=== PATIENT | male | born 1950 | race African-American/Black ===

== ENCOUNTER 2017-05-15 16:04 | Observation (INO) ==
[2017-05-15 17:14] LABS: Basophils # 0.1 10*3/uL (0.0-0.2); Basophils % 1.1 % (0.0-0.8); Eosinophils # 0.3 10*3/uL (0.0-0.87); Eosinophils % 3.6 % (0.00-10.9); Hematocrit 38.9 VOL% (42.0-52.0); Hemoglobin 12.4 GM/DL (14.0-18.0); Immature Granulocytes % 1.1 %; Immature Granulocytes Absolute 0.08 #; Lymphocytes # 2.1 10*3/uL (1.4-4.0); Lymphocytes % 29.3 % (21.2-54.2); Mean Corpuscular HGB Conc 31.9 GM/DL (32-36); Mean Corpuscular Hemoglobin 29 PG (27-34); Mean Corpuscular Volume 89.8 FL (87-102); Monocytes % 14.4 % (1.7-12.7); Neutrophils # 3.5 10*3/uL (1.4-7.4); Neutrophils % 50.5 % (38.7-73.9); Platelet Count 189 T/CUMM (130-400); Red Blood Count 4.33 MC/CUMM (3.8-5.5); Red Cell Distribution Width 15.9 % (9.3-17.3)
--- NOTE | 2017-05-15 17:31 | XRay Report ---
History: Abdominal pain Date: 05/15/2017 Study: Flat and left lateral decubitus views abdomen Comparison exam: July 02, 2016 There is no evidence of pneumoperitoneum. The bowel gas pattern is nonobstructive without gross mass lesion. No radiopaque calculi are seen. There is mild lumbar spondylosis. Prosthetic heart valve is noted. Impression: No acute abdominal process PROCEDURE INTERPRETED AT [facility] DEPARTMENT OF RADIOLOGY Final Report Signed by: Dr. Lakshmi Herrera
--- NOTE | 2017-05-15 17:33 | XRay Report ---
History: Shortness of breath Date: 05/15/2017 Study: Chest x-ray AP portable Comparison exam: May 12, 2017 There is continued cardiomegaly. The patient is status post prior median sternotomy and mitral valve replacement. There is no mediastinal mass. The pulmonary vasculature is slightly prominent. There is moderate elevation of the right hemidiaphragm as before. There is trace pleural effusion on the right. There is mild atelectatic change in the medial right lung base. The left lung is generally clear. Osseous structures are unchanged. Impression: Cardiomegaly and evidence of mild CHF. Grossly similar to the exam performed 3 days ago PROCEDURE INTERPRETED AT [facility] DEPARTMENT OF RADIOLOGY Final Report Signed by: Dr. Lakshmi Herrera
[2017-05-15 17:40] LABS: Albumin 3.2 G/DL (3.4-5.0); Bilirubin,Total 0.7 MG/DL (0.2-1.0); Calcium 8.7 MG/DL (8.5-10.1); Total Protein 7.3 G/DL (6.4-8.3)
[2017-05-15 17:45] LABS: Troponin I Only 1.03 NG/ML (0.00-0.045)
[2017-05-15] MEDS ORDERED: MAGNESIUM SULF RIDER 4 GM in PREMIX 1 EACH IV PRN (19:11)
[2017-05-15] MEDS ORDERED: MAGNESIUM SULF RIDER 2 GM in PREMIX 1 EACH IV PRN (19:11)
--- NOTE | 2017-05-15 19:11 | Emergency Department Note ---
ITim Emily, am scribing for, and in the presence of, Maciej Schaffer M.D. 16 :42. Sarbjit Wen Howard T, M.D., personally performed the services described in this documentation, ascribed by Zo Dumont in my presence, and it is both accurate and complete [id number] . Arrival - Arrival Chief Complaint: Shortness of Breath ED Nursing Triage Note: Brought in by EMS c/o SOB-onset 2 days ago. Patient dialyzed earlier today. Mode of Arrival: Stretcher Limitations: No Limitations Source: Patient Time Seen by Provider: 05/15/17 16:19 - History of Present Illness HPI Narrative: Pt is a 66 y/o male who was brought to ED by EMS with c/o SOB and left side chest pain that started , day after heart cath was done by . Pt has associated sxs of nausea and pain when swallowing but denies vomiting or fevers. Pt reports heart cath procedure went good with no complications. Pt dialyzed earlier today. Onset (ago): day(s) Consistency: constant Severity: mild, moderate Severity scale (1-10): 4 Quality: aching, fullness Allergies/Adverse Reactions: Allergies Allergy/AdvReac Type Severity Reaction Status Date / Time No Known Allergies Allergy Verified 05/12/17 06:43 Home Medications: Home Medications Medication Instructions Recorded Confirmed Type Azelastine Nasal 137 Mcg/[place] 2 spray BOTH NARES BID nasal spray 07/01/1602/24 Rx [Astelin Nasal [place]] Ferrous Sulfate Tab [Feosol 325 mg PO DAILY tablet 07/01/16 05/15/17 Rx Original Tab] Amiodarone HCl 100 mg PO DAILY 07/20/16 05/15/17 History Allopurinol [Zyloprim] 100 mg PO BID 08/18/16 05/15/17 History LORazepam [Lorazepam] 0.5 mg PO PRN PRN 08/18/16 05/15/17 History Insulin Glargine [Lantus] 30 unit SUBCUT DAILY 05/10/17 05/15/17 History Lidocaine/Prilocaine Cream [Emla] 1 applic TOP ONCE PRN 05/12/17 05/15/17 History Omeprazole 40 mg PO DAILY 05/12/17 05/15/17 History Promethazine Tab [Phenergan Tab] 25 mg PO Q6H PRN 05/12/17 05/15/17 History hydrOXYzine HCl [Hydroxyzine HCl] 25 mg PO Q8HR PRN 05/12/17 05/15/17 History Carvedilol [Coreg] 25 mg PO BID #60 tablet 05/13/17 05/15/17 Rx Irbesartan [Avapro] 150 mg PO DAILY #30 tablet 05/13/17 05/15/17 Rx Rosuvastatin [Crestor] 20 mg PO BEDTIME #30 tablet 05/13/17 05/15/17 Rx Ticagrelor [Brilinta] 90 mg PO BID #60 tablet 05/13/17 05/15/17 Rx Aspirin EC Tab 81 mg PO DAILY 05/15/17 05/15/17 History Torsemide 10 mg PO DAILY 05/15/17 05/15/17 History hydrALAZINE TAB [Apresoline Tab] 50 mg PO DAILY 05/15/17 05/15/17 History Review of System - Review of System 12 point system: reviewed and no additional remarkable complaints except as stated - Review of System Constitutional: Absent: fever, weakness Head/Ears/Nose/Throat: Absent: sore throat (pain with swallowing) Respiratory: Present: respiratory distress Cardiovascular: Present: chest pain (left side) Gastrointestinal: Present: nausea. Absent: abdominal pain, vomiting, diarrhea Musculoskeletal: Absent: arm pain, back pain, leg pain, neck pain Skin: Absent: rash Neurological: Absent: headache Medical,Surgical,& Family Hx - Medical History Cardio: History of: Cardiac Dysrhythmia (A Fib), CHF (Since 2008), CAD, Hypertension (Since 2008), Cardiovascular Problems Psychological: History of: Anxiety Disorders (Since 2015), Depression ( Since 2015) Neurology: No history of: Seizures HEENT: History of: Eye Problem, Glaucoma Endocrine: History of: Diabetes Mellitus (IDDM) (Since 2008), Dyslipidemia ( Since 2008) Rheumatology: History of;: Gout (For the last 20 years), Rheumatoid Arthritis ( In left hand since last 10 years.) Respiratory: History of: Bronchitis (In 2016), Respiratory Problems Renal: History of: Dialysis (Since 2015), Renal Failure Gastrointestinal: History of: GERD (Since 2008) - Surgical History Cardiac Surgeries: Sugical HX of: Cardiac Catheterization, Cardiac Surgery ( CABG in 2015) Patient Denies: Femoral-Popliteal Bypass Graft, Carotid Endarterectomy, Internal Defibrillator, Vascular Access Devices Thoracic Surgeries: Patient denies;: Organ Transplant Neurologic Surgeries: Patient denies: Neurologic Surgery HEENT Surgeries: Surgical HX of: Eye Surgery (Lens replacement & Stent placed in left eye since 2015) Patient denies: Carotid Endarterectomy Abdominal Surgeries: Patient denies: Splenectomy Orthopedic Surgeries: Surgical HX of;: Total Knee Replacement (left knee, 2015) - Family History Family History: Reports;: Family Cancer (dad - lung), Family Diabetes (mother), Family Hypertension (mother) Denies;: Family Anesthesia Reaction, Family Psychiatric Problems, Family Stroke - Social History Smoking Status: Former smoker Marital Status: Single Functional capacity: independent ambulation Exam Vital Signs: Vital Signs Temperature 97.3 F L 05/15/17 16:14 Pulse Rate 70 05/15/17 16:14 Respiratory Rate 20 05/15/17 16:30 Blood Pressure 94/57 05/15/17 16:14 O2 Sat by Pulse Oximetry 95 05/15/17 16:14 - General General appearance: alert, in no apparent distress - Head Head exam: Present: atraumatic, normocephalic - Eye Eye exam: Present: PERRL, EOMI - ENT ENT exam: Present: mucous membranes moist. Absent: mucous membranes dry - Neck Neck exam: Present: full ROM. Absent: tenderness - Chest Chest inspection: Present: symmetric chest wall rise. Absent: tenderness - Respiratory Respiratory exam: Absent: normal lung sounds bilaterally (poor effort with coarse sounds), respiratory distress - Cardiovascular Cardiovascular exam: Present: regular rate, normal rhythm, normal heart sounds - Abdominal Exam Abdominal exam: Present: soft, distention (mild distention). Absent: tenderness - Extremities Exam Extremities exam: Present: full ROM, pedal edema (trace). Absent: tenderness - Neurological Exam Neurological exam: Present: alert, oriented X3, CN II-XII intact. Absent: motor sensory deficit - Psychiatric Psychiatric exam: Present: normal affect, normal mood - Skin Skin exam: Present: warm, dry Course Course Narrative: Medical decision making: Discussed with Dr. Ruiz brace end [employer] former on-call who did recommend overnight observation and cardiac enzymes repeated due to chest pain despite recent cath. Results - Labs CBC & BMP: 05/15/17 17:03 05/15/17 17:03 Lab Results: I have reviewed the patients labs Labs: Laboratory Tests 05/15/17 05/15/17 05/15/17 17:03 17:03 17:03 WBC 7.0 RBC 4.33 Hgb 12.4 L Hct 38.9 L MCHC 31.9 L Plt Count 189 D [place] % (Auto) 14.4 H Baso % (Auto) 1.1 H [place] # (Auto) 1.0 H Sodium 136 Potassium 4.0 Chloride 94 L Carbon Dioxide 36 H BUN 35 H Creatinine 5.50 H Glucose 133 H AST 38 H Alkaline Phosphatase 140 H Troponin I 1.030 H D B-Natriuretic Peptide 171 H Albumin 3.2 L Globulin 4.1 H Albumin/Globulin Ratio 0.7 L - Diagnostic Findings Procedure: Abdominal x-ray: report reviewed by me (No acute abdominal process.) , Chest x-ray: report reviewed by me (Cardiomegaly and evidence of mild CHF. Grossly similar to the exam performed 3 days ago.) Disposition Clinical Impression: Elevated troponin, CHF (congestive heart failure), ESRD (end stage renal disease) on dialysis, CAD (coronary artery disease) Case discussed with: patient Disposition: Still a Patient Condition: Stable Time of Disposition: 19:10
[2017-05-15] MEDS: ALUMINUM/MAGNES/SIMETH MAX STR 30 ML UDCUP PO PRN (23:33)
[2017-05-16 01:58] LABS: Basophils # 0.1 10*3/uL (0.0-0.2); Basophils % 1.1 % (0.0-0.8); Eosinophils # 0.3 10*3/uL (0.0-0.87); Hematocrit 35.5 VOL% (42.0-52.0); Hemoglobin 11.3 GM/DL (14.0-18.0); Immature Granulocytes % 0.8 %; Immature Granulocytes Absolute 0.05 #; Lymphocytes # 2.2 10*3/uL (1.4-4.0); Lymphocytes % 33.6 % (21.2-54.2); Mean Corpuscular HGB Conc 31.8 GM/DL (32-36); Mean Corpuscular Hemoglobin 29 PG (27-34); Mean Corpuscular Volume 89.6 FL (87-102); Mean Platelet Volume 11.9 FL (9.6-12.0); Monocytes % 15.4 % (1.7-12.7); Neutrophils # 2.9 10*3/uL (1.4-7.4); Neutrophils % 45.1 % (38.7-73.9); Platelet Count 171 T/CUMM (130-400); Red Blood Count 3.96 MC/CUMM (3.8-5.5); Red Cell Distribution Width 15.6 % (9.3-17.3); White Blood Count 6.5 T/CUMM (4-12)
[2017-05-16 02:00] LABS: Calcium 8.2 MG/DL (8.5-10.1); Osmolality,Calculated 289.7 MOS/KG (273-304); Potassium 3.4 MMOL/L (3.5-5.1); Troponin I Only 0.906 NG/ML (0.00-0.045)
--- NOTE | 2017-05-16 07:50 | Cardiology History & Physical ---
Assessment and Plan (1) ESRD (end stage renal disease) on dialysis Problem details: No acute indication for HD today. Status: Acute Current Visit: Yes (2) Elevated troponin Status: Acute Assessment and plan: Patient's troponin is elevated in a nonspecific pattern and we will repeat it this morning. Of note his CK total and CK-MB are negative for evidence of myocardial damage. Current Visit: Yes (3) CAD (coronary artery disease) Problem details: pt is schedule for CABG next week Status: Chronic Current Visit: Yes (4) Cardiomyopathy Status: Acute Assessment and plan: Continue current medications. Current Visit: No History of Present Illness Chief complaint: I am still having chest pain History of present illness: Mr. Strauss is a 66 year old male who has end-stage renal disease and dialyzes Wednesday. He dialyzed yesterday without problems. He was admitted several days ago for PCI of the right coronary stenosis which was done and was uncomplicated. Patient's troponins are elevated primarily related to his end-stage renal disease and he presented to the hospital last night complaining of chest discomfort. For that reason he was admitted for observation. He has had no further chest discomfort this morning. He complains of shortness of breath which is likely related to the patient's deconditioning as well as his history of cardiomyopathy. His ejection fraction was found to be in the 35-40% range. His troponins were nonspecifically elevated and we will repeat an another set today. If they are unchanged we can likely discharge this patient home. He describes the pain in his chest is related to swallowing. He clearly does not sound anginal. His EKG does not show any acute change and is essentially unchanged from EKG done post procedure. Home Medications Medication Instructions Recorded Confirmed Type Azelastine Nasal 137 Mcg/[place] 2 spray BOTH NARES BID nasal spray 07/01/1602/24 Rx [Astelin Nasal [place]] Ferrous Sulfate Tab [Feosol 325 mg PO DAILY tablet 07/01/16 05/15/17 Rx Original Tab] Amiodarone HCl 100 mg PO DAILY 07/20/16 05/15/17 History Allopurinol [Zyloprim] 100 mg PO BID 08/18/16 05/15/17 History LORazepam [Lorazepam] 0.5 mg PO PRN PRN 08/18/16 05/15/17 History Insulin Glargine [Lantus] 30 unit SUBCUT DAILY 05/10/17 05/15/17 History Lidocaine/Prilocaine Cream [Emla] 1 applic TOP ONCE PRN 05/12/17 05/15/17 History Omeprazole 40 mg PO DAILY 05/12/17 05/15/17 History Promethazine Tab [Phenergan Tab] 25 mg PO Q6H PRN 05/12/17 05/15/17 History hydrOXYzine HCl [Hydroxyzine HCl] 25 mg PO Q8HR PRN 05/12/17 05/15/17 History Carvedilol [Coreg] 25 mg PO BID #60 tablet 05/13/17 05/15/17 Rx Irbesartan [Avapro] 150 mg PO DAILY #30 tablet 05/13/17 05/15/17 Rx Rosuvastatin [Crestor] 20 mg PO BEDTIME #30 tablet 05/13/17 05/15/17 Rx Ticagrelor [Brilinta] 90 mg PO BID #60 tablet 05/13/17 05/15/17 Rx Aspirin EC Tab 81 mg PO DAILY 05/15/17 05/15/17 History Torsemide 10 mg PO DAILY 05/15/17 05/15/17 History hydrALAZINE TAB [Apresoline Tab] 50 mg PO DAILY 05/15/17 05/15/17 History Allergies Allergy/AdvReac Type Severity Reaction Status Date / Time No Known Allergies Allergy Verified 05/12/17 06:43 Medical,Surgical,& Family Hx - Medical History Cardio: History of: Cardiac Dysrhythmia (A Fib), CHF (Since 2008), CAD, Hypertension (Since 2008), Cardiovascular Problems Psychological: History of: Anxiety Disorders (Since 2015), Depression ( Since 2015) Neurology: No history of: Seizures HEENT: History of: Eye Problem, Glaucoma Endocrine: History of: Diabetes Mellitus (IDDM) (Since 2008), Dyslipidemia ( Since 2008) Rheumatology: History of;: Gout (For the last 20 years), Rheumatoid Arthritis ( In left hand since last 10 years.) Respiratory: History of: Bronchitis (In 2016), Respiratory Problems Renal: History of: Dialysis (Since 2015), Renal Failure Gastrointestinal: History of: GERD (Since 2008) - Surgical History Cardiac Surgeries: Sugical HX of: Cardiac Catheterization, Cardiac Surgery ( CABG in 2015) Patient Denies: Femoral-Popliteal Bypass Graft, Carotid Endarterectomy, Internal Defibrillator, Vascular Access Devices Thoracic Surgeries: Patient denies;: Organ Transplant Neurologic Surgeries: Patient denies: Neurologic Surgery HEENT Surgeries: Surgical HX of: Eye Surgery (Lens replacement & Stent placed in left eye since 2015) Patient denies: Carotid Endarterectomy Abdominal Surgeries: Patient denies: Splenectomy Orthopedic Surgeries: Surgical HX of;: Total Knee Replacement (left knee, 2015) - Family History Family History: Reports;: Family Cancer (dad - lung), Family Diabetes (mother), Family Hypertension (mother) Denies;: Family Anesthesia Reaction, Family Psychiatric Problems, Family Stroke - Social History Smoking Status: Former smoker Frequency of Alcohol Use: None Type of Drug Use: None Cardiology Physical Exam - Constitutional Vitals: Vital Signs Temp Pulse Resp BP Pulse Ox 97.1 F L 70 18 101/62 93 L 05/16/17 04:00 05/16/17 04:00 05/16/17 06:34 05/16/17 04:00 05/16/17 04:00 Intake and Output 05/15/17 05/15/17 05/16/17 15:59 23:59 07:59 Intake Total 120 / 120 0 / 0 Balance 120 / 120 0 / 0 Intake: Oral 120 / 120 0 / 0 Other: Voiding Method Dialysis Patient Dialysis Patient # Bowel Movements 0 0 Weight 112.672 kg 112.491 kg Patient Weight 05/16/17 23:59 Weight 112.491 kg Exam: General:no acute distress. alert and oriented, mood and affect are normal HEENT: no new lesions, sclerae are clear, mouth and pharynx benign Neck: supple, trachea midline, no JVD noted Lungs: no rales ronchi or wheeze is noted. pt comfortable without accesory muscle use to assist with breathing CV: RRR no murmur rub or gallop is noted. Abd: soft and nontender, BSNA, no masses. Ext: no cyanosis, clubbing or edema Neuro: grossly intact without focal neurologic deficit. Result/EKG - Labs CBC & BMP: 05/16/17 01:31 05/16/17 01:31 Labs: Laboratory Results - last 24 hr 05/15/17 05/15/17 05/15/17 17:03 17:03 17:03 WBC 7.0 RBC 4.33 Hgb 12.4 L Hct 38.9 L MCV 89.8 MCH 29 MCHC 31.9 L RDW 15.9 Plt Count 189 D MPV 12.0 Neut % (Auto) 50.5 Lymph % (Auto) 29.3 [place] % (Auto) 14.4 H Eos % (Auto) 3.6 Baso % (Auto) 1.1 H Neut # (Auto) 3.5 Lymph # (Auto) 2.1 [place] # (Auto) 1.0 H Eos # (Auto) 0.3 Baso # (Auto) 0.1 Immature Gran % 1.1 Nucleated RBC % 0.0 Immature Gran # 0.08 Nucleated RBCs # 0.00 Immature Plt Fraction 0.0 Sodium 136 Potassium 4.0 Chloride 94 L Carbon Dioxide 36 H Anion Gap 10.0 BUN 35 H Creatinine 5.50 H GFR Calculation 15 BUN/Creatinine Ratio 6.00 Glucose 133 H POC Glucose Calculated Osmolality 281.0 Calcium 8.7 Total Bilirubin 0.70 AST 38 H ALT 18 Alkaline Phosphatase 140 H Total Creatine Kinase CK-MB (CK-2) Troponin I 1.030 H D B-Natriuretic Peptide 171 H Total Protein 7.3 Albumin 3.2 L Globulin 4.1 H Albumin/Globulin Ratio 0.7 L 05/15/17 05/15/17 05/16/17 21:16 21:33 01:31 WBC RBC Hgb Hct MCV MCH MCHC RDW Plt Count MPV Neut % (Auto) Lymph % (Auto) [place] % (Auto) Eos % (Auto) Baso % (Auto) Neut # (Auto) Lymph # (Auto) [place] # (Auto) Eos # (Auto) Baso # (Auto) Immature Gran % Nucleated RBC % Immature Gran # Nucleated RBCs # Immature Plt Fraction Sodium Potassium Chloride Carbon Dioxide Anion Gap BUN Creatinine GFR Calculation BUN/Creatinine Ratio Glucose POC Glucose 84 Calculated Osmolality Calcium Total Bilirubin AST ALT Alkaline Phosphatase Total Creatine Kinase 168 165 CK-MB (CK-2) 2.3 2.2 Troponin I 1.010 H 0.906 H B-Natriuretic Peptide Total Protein Albumin Globulin Albumin/Globulin Ratio 05/16/17 05/16/17 05/16/17 01:31 01:31 01:31 WBC 6.5 RBC 3.96 Hgb 11.3 L Hct 35.5 L MCV 89.6 MCH 29 MCHC 31.8 L RDW 15.6 Plt Count 171 MPV 11.9 Neut % (Auto) 45.1 Lymph % (Auto) 33.6 [place] % (Auto) 15.4 H Eos % (Auto) 4.0 Baso % (Auto) 1.1 H Neut # (Auto) 2.9 Lymph # (Auto) 2.2 [place] # (Auto) 1.0 H Eos # (Auto) 0.3 Baso # (Auto) 0.1 Immature Gran % 0.8 Nucleated RBC % 0.0 Immature Gran # 0.05 Nucleated RBCs # 0.00 Immature Plt Fraction 0.0 Sodium 138 Potassium 3.4 L Chloride 94 L Carbon Dioxide 34 H Anion Gap 13.4 BUN 43 H Creatinine 6.40 H GFR Calculation 13 BUN/Creatinine Ratio 6.00 Glucose 162 H POC Glucose Calculated Osmolality 289.7 Calcium 8.2 L Total Bilirubin AST ALT Alkaline Phosphatase Total Creatine Kinase CK-MB (CK-2) Troponin I B-Natriuretic Peptide 211 H Total Protein Albumin Globulin Albumin/Globulin Ratio
[2017-05-16] MEDS ORDERED: LORazepam 1 MG TABLET PO PRN (07:53)
[2017-05-16] MEDS ORDERED: PROMETHAZINE 25 MG TABLET PO PRN (07:53)
[2017-05-16] MEDS ORDERED: hydrOXYzine HCL 25 MG TABLET PO PRN (07:53)
[2017-05-16] MEDS ORDERED: LIDOCAINE/PRILOCAINE CREAM 5 GM TUBE TOP PRN (07:53)
--- NOTE | 2017-05-16 08:13 | EKG Report ---
Stationary ECG Study [facility] ER Test Date: 05/15/2017 4:13:10 PM Pat Name: JARETH MERRITT Department: Room: 523 Gender: M Detention Worker: : 1950 Requested by: Maciej Gramajo Order Number: [id number] Reading MD: FATMATA DOBBINS Intervals [place] Rate: 69 P: 119 PA: 135 QRS: 121 QRSD: 98 T: -61 QT: 406 QTc: 426 Interpretive Statements SINUS RHYTHM WITH OCCASIONAL VENTRICULAR PREMATURE COMPLEXES Consider ARM LEADS REVERSED Prolonged QTc with diffuse repol abnorm Electronically Signed On 05-17-17 07:26:39 CDT by FATMATA DOBBINS [email or web address]
[2017-05-16 09:31] LABS: Troponin I Only 0.944 NG/ML (0.00-0.045)
[2017-05-16] MEDS: INSULIN GLARGINE 100 UNIT/ML SUBCUT SCH (10:11)
[2017-05-16] MEDS: IRBESARTAN 150 MG TABLET PO SCH (10:16)
[2017-05-16] MEDS: AZELASTINE NASAL 137 MCG/SPRAY 30 ML BOTTLE BOTH NARES SCH ×2 (10:16→20:12)
[2017-05-16] MEDS: TICAGRELOR 90 MG TABLET PO SCH ×2 (10:17→20:13)
[2017-05-16] MEDS: FERROUS SULFATE 325 MG TABLET PO SCH (10:17)
[2017-05-16] MEDS: AMIODARONE 200 MG TABLET PO SCH (10:17)
[2017-05-16] MEDS: TORSEMIDE 20 MG TABLET PO SCH (10:18)
[2017-05-16] MEDS: ASPIRIN EC 81 MG TABLET PO SCH (10:18)
[2017-05-16] MEDS: CARVEDILOL 25 MG TABLET PO SCH ×2 (10:18→20:12)
[2017-05-16] MEDS: ALLOPURINOL 100 MG TABLET PO SCH ×2 (10:19→20:13)
[2017-05-16] MEDS: PANTOPRAZOLE 40 MG TABLET PO SCH (10:19)
[2017-05-16] MEDS: ALUMINUM/MAGNES/SIMETH MAX STR 30 ML UDCUP PO PRN (20:12)
[2017-05-16] MEDS ORDERED: ROSUVASTATIN 20 MG TABLET PO SCH (21:00)
--- NOTE | 2017-05-17 07:12 | EKG Report ---
Stationary ECG Study [facility] Test Date: 05/17/2017 7:12:34 AM Pat Name: JARETH MERRITT Department: Room: 523 Gender: M Paper Sales Representative: : 1950 Requested by: Joaquin Ruiz Order Number: [id number] Reading MD: FATMATA DOBBINS Intervals [place] Rate: 62 P: 999 [place]: 0 QRS: 107 QRSD: 106 T: -85 QT: 430 QTc: 435 Interpretive Statements Sinus rhythm PAC with prominent [place] prolongation/ [id number] Junctional beat MODERATE INTRAVENTRICULAR CONDUCTION DELAY Prolonged QTc with repol abnorm Electronically Signed On 05-17-17 07:55:25 CDT by FATMATA DOBBINS [email or web address]
[2017-05-17] MEDS: TICAGRELOR 90 MG TABLET PO SCH (09:16)
[2017-05-17] MEDS: ALUMINUM/MAGNES/SIMETH MAX STR 30 ML UDCUP PO PRN (09:16)
[2017-05-17] MEDS: IRBESARTAN 150 MG TABLET PO SCH (09:16)
[2017-05-17] MEDS: INSULIN GLARGINE 100 UNIT/ML SUBCUT SCH (09:16)
[2017-05-17] MEDS: ASPIRIN EC 81 MG TABLET PO SCH (09:16)
[2017-05-17] MEDS: CARVEDILOL 25 MG TABLET PO SCH (09:16)
[2017-05-17] MEDS: PANTOPRAZOLE 40 MG TABLET PO SCH (09:16)
[2017-05-17] MEDS: FERROUS SULFATE 325 MG TABLET PO SCH (09:16)
[2017-05-17] MEDS: AMIODARONE 200 MG TABLET PO SCH (09:17)
[2017-05-17] MEDS: TORSEMIDE 20 MG TABLET PO SCH (09:17)
[2017-05-17] MEDS: ALLOPURINOL 100 MG TABLET PO SCH (09:17)
[2017-05-17] MEDS: AZELASTINE NASAL 137 MCG/SPRAY 30 ML BOTTLE BOTH NARES SCH (09:17)
--- NOTE | 2017-05-17 10:58 | Discharge Summary ---
Cha Wen April, RN, am scribing for, and in the presence of, Amol Durbin MD 10:57. Hospital Course - Hospital Course Hospital Course: Beekeeper: Dr. Wilson Mr. Strauss a 66-year-old male with a history of end-stage renal disease who dialyzes Wednesday, CAD, and cardiomyopathy. He also has history of mitral valve replacement and CABG in May 2016. On May 12 of this year he underwent heart catheterization with PCI to the proximal right coronary artery with a drug-eluting stent which this was subsequently postdilated with an apex balloon. The SHUKLA graft to the RCA was widely patent. Ejection fraction was found to be 35-40%. His Eliauis was discontinued and he was discharged home on Brilinta, baby aspirin, Crestor, Avapro, and Coreg. He presented to the emergency department May 15 with complaints of shortness of breath and left-sided chest pain that began on May 13. Troponin admission was 0.906 and have remained flat. His CK and CK-MB were negative. Elevated troponin is most likely elevated secondary to his end-stage renal disease. His EKG did not show any acute changes. The chest pain he describes is related to swallowing. Chest x-ray done on admission was grossly similar to the one performed 3 days prior. Abdominal x-ray showed no acute abdominal process. This morning he is seen resting in bed in no acute distress. Reports he is still occasionally has some shortness of breath. He also states he continues to have some slight chest pain that continues to be related to swallowing. He has seen Dr. Gonzáles previously. Vital signs been stable. He has not had any anginal symptoms and his cardiac status is been stable. He is ready maximum benefit from hospitalization will be discharged home. He has appointment scheduled to see Dr. Wilson May 24, we will have him keep this appointment. He does not need any further cardiac evaluation during this admission. We discussed referring him back to Dr. Gonzáles for evaluation of his dysphagia. He is agreeable to this. - Time spent with patient Time with patient DS: Greater than 30 minutes Diagnosis - Discharge Diagnosis (1) ESRD (end stage renal disease) on dialysis Status: Chronic (2) Elevated troponin Status: Resolved (3) CAD (coronary artery disease) Status: Chronic (4) H/O prosthetic mitral valve Status: Chronic Specialty Discharge - Follow Up or Referrals Follow up with: Juan Pablo Wilson MD [Physician] - (Keep appointment already scheduled Dr. Wilson May 24) Dimitri Gonzáles MD [Physician] - (to eval painful swallowing, has seen in the past) Discharge Plan - Discharge Data Disposition: Disch To Home/Self Care Condition at Discharge: Stable Discharge Diet: heart healthy Activity: resume usual activities as tolerated Hygiene: no restrictions Weight Bearing at Discharge: weight bear as tolerated Contact your physician if you experience:: fever over 101, Difficulty voiding, Redness or swelling, Nausea/Vomiting, Shortness of breath, Bleeding, pain uncontrolled by pain medications - Discharge Medications Continue Azelastine Nasal 137 Mcg/[place] [Astelin Nasal [place]] 2 spray BOTH NARES BID nasal spray Ferrous Sulfate Tab [Feosol Original Tab] 325 mg PO DAILY tablet Amiodarone HCl 100 mg PO DAILY Lidocaine/Prilocaine Cream [Emla] 1 applic TOP ONCE PRN PRN Reason: pain Omeprazole 40 mg PO DAILY Promethazine Tab [Phenergan Tab] 25 mg PO Q6H PRN PRN Reason: Nausea Carvedilol [Coreg] 25 mg PO BID #60 tablet Irbesartan [Avapro] 150 mg PO DAILY #30 tablet Rosuvastatin [Crestor] 20 mg PO BEDTIME #30 tablet Torsemide 10 mg PO DAILY hydrALAZINE TAB [Apresoline Tab] 50 mg PO DAILY Insulin Glargine [Lantus] 30 unit SUBCUT DAILY hydrOXYzine HCl [Hydroxyzine HCl] 25 mg PO Q8HR PRN PRN Reason: Itching Ticagrelor [Brilinta] 90 mg PO BID #60 tablet Aspirin EC Tab 81 mg PO DAILY LORazepam [Lorazepam] 0.5 mg PO PRN PRN PRN Reason: Anxiety Allopurinol [Zyloprim] 100 mg PO BID - Follow Up or Referral Follow Up: Juan Pablo Wilson MD [Physician] - (Keep appointment already scheduled Dr. Wilson May 24) Dimitri Gonzáles MD [Physician] - (to eval painful swallowing, has seen in the past) - Forms/Instructions Exam - Constitutional Vitals: Period Temp Pulse Resp BP Sys/Martin Pulse Ox Last 24 Hr 97 F-97.9 F 67-74 12-20 102-123/49-84 90-99 General appearance: no acute distress, morbidly obese - Head Head exam: Absent: abrasion, hematoma - Eye Eye exam: Absent: periorbital swelling, laceration to eyelids - Neck Neck exam: Absent: tenderness - Respiratory Respiratory exam: Present: clear to auscultation bilaterally. Absent: accessory muscle use, chest wall tenderness - Cardiovascular Cardiovascular exam: Present: regular rate and rhythm. Absent: rubs, systolic murmur - GI/Abdominal GI/Abdominal exam: Present: normal bowel sounds, soft. Absent: distended, tenderness - Extremities Exam Extremities exam: Absent: calf tenderness, edema - Neurological Exam Neurological exam: Present: alert, oriented X3 - Psychiatric Psychiatric exam: Present: normal affect, normal mood - Skin Skin exam: Present: warm, dry Discharge Results Labs on day of discharge: Labs from last 24 hours 05/17/17 05/17/17 05/16/17 07:55 07:30 19:07 POC Glucose 154 H 155 H Troponin I 0.873 H 05/16/17 05/16/17 16:07 11:57 POC Glucose 115 H 178 H Troponin I - Imaging and Cardiology Procedure: Chest x-ray: report reviewed by me DS: Provider Consults: 05/15/17 22:06 Consult to Dietitian [CONS] Routine Reason for Dietitian: Dietary Consult Expected date of discharge: 05/17/17 Ramakrishna Wen John Timothy, MD, personally performed the services described in this documentation, ascribed by Sima Eubanks RN in my presence, and it is both accurate and complete .
[2017-05-17 11:34] VITALS: BP 98/52
== END 2017-05-17 12:05 | disposition home or self-care (01) ==
LOC: EDBD → EDUNIT# → N.ED 16:04 → N.EDINP 16:04 → N.5E 20:28
PROVIDERS: ADMIT Internal Medicine Interventional Cardiology; ATTEND Internal Medicine Interventional Cardiology